=== PATIENT | male | born 1955 | race Caucasian/White ===

== ENCOUNTER → 2020-12-17 16:36 | Outpatient (CLI) | payer BC, SELFPAY ==
--- NOTE | 2020-12-17 16:55 | CT_ITS ---
HISTORY: HEMATURIA NO HX OF KS TECHNIQUE: Helically acquired images were obtained of the abdomen and pelvis without oral or IV contrast. A radiation dose optimization technique was used for this scan. COMPARISON: None FINDINGS: # of images incl. paperwork: 499 LUNG BASES: clear. CT abdomen: Benign hemangioma within the L3 vertebral body. Minimal facet arthritis. There are lymph nodes in induration of the fat inferior to the pancreas the mesenteric root consistent with mesenteric panniculitis. The gallbladder contracted. Liver, spleen, pancreas, and adrenal glands are normal. The kidneys are normal. The aorta is normal. There is no intra-or extrahepatic biliary ductal dilatation. CT pelvis: No ascites is present. The prostate gland is not enlarged. The appendix is not identified and may have been resected. The bladder is mildly decompressed. Bowel gas pattern is normal. CT/Abdomen/Pelvis without Cont IMPRESSION: Mesenteric panniculitis Individualized dose optimization techniques were used for this CT. at 0656 Reported and signed by: Qamar Hernandez MD Electronically Signed: Qamar Hernandez MD at 6:55 EST Tel , Service support ,
== END ==
PROVIDERS: PCP Family Medicine; Referring Provider Family Medicine; Visit Provider Family Medicine
DX: R31.9 Hematuria, unspecified (principal)
CPT/HCPCS: 74176